=== PATIENT | male | born 1975 | race Caucasian/White ===

== ENCOUNTER 2023-10-29 15:49 | Outpatient (REF) | payer MEDICAID, OTHER, SELFPAY ==
[2023-10-29 17:38] LABS: Basophils Percent Auto 0.5 % (0-2); Eosinophils Absolute Auto 0.1 X10*3/uL (0.0-0.4); Eosinophils Percent Auto 1.5 % (0-4); Hematocrit 40.7 % (42.0-52.0); Imm Gran Abs Auto 0.02 X10*3/uL (0.00-0.03); Imm Gran Pct Auto 0.3 % (0.0-0.4); Lymphocytes Absolute Auto 2.7 X10*3/uL (1.2-4.9); Lymphocytes Percent Auto 34.8 % (20-40); MANUAL DIFF FLAG NO; Mean Corpuscular HGB Conc 34.4 g/dl (31.0-36.0); Mean Corpuscular Hemoglobin 31.5 pg (27.0-33.0); Mean Corpuscular Volume 91.7 fL (80.0-98.0); Mean Platelet Volume 9.2 fL (9.4-12.4); Monocytes Absolute Auto 0.7 X10*3/uL (0.1-1.2); Monocytes Percent Auto 8.6 % (2-11); Neutrophils Absolute Auto 4.2 x10*3/uL (2.0-8.3); Neutrophils Percent Auto 54.3 % (45-73); Platelet Count 211 X10*3/uL (160-400); Red Blood Count 4.44 X10*6/uL (4.60-5.80); Red Cell Distribution Width 11.3 % (11.0-16.0); White Blood Count 7.8 X10*3/uL (4.8-10.8)
[2023-10-30 14:43] LABS: RPR Rapid Plasma Reagin NON-REACTIVE (NON-REACTIVE)
== END 2023-10-29 15:50 | disposition home or self-care (01) ==
LOC: HO.CHCLDS 15:49
PROVIDERS: Visit Provider Internal Medicine
DX: L42 Pityriasis rosea (principal)
CPT/HCPCS: 36415; 85025; 86592

== ENCOUNTER 2024-11-11 14:00 | Outpatient (REF) | payer MEDICAID, OTHER, SELFPAY ==
[2024-11-11 17:35] LABS: MANUAL DIFF FLAG NO
[2024-11-11 18:01] LABS: Alanine Aminotransferase 27 U/L (0-40); Albumin Level 4.7 g/dL (3.5-5.0); Alkaline Phosphatase 65 U/L (39-117); Anion Gap 12 (12-20); Aspartate Amino Transferase 30 U/L (5-37); Bilirubin Total 0.7 mg/dL (0.0-1.0); Blood Urea Nitrogen 11 mg/dL (9-16); Calcium 9.1 mg/dL (8.4-10.2); Carbon Dioxide 26 mmol/L (22-29); Chloride 104 mmol/L (96-108); Cholesterol 194 mg/dL (<200); Estimated Glomerular Filt Rate > 60; Glucose Random 98 mg/dL (60-115); HDL Cholesterol 57 mg/dL (>40); LDL Cholesterol Calculated 98 mg/dL (<100); Potassium 3.6 mmol/L (3.3-5.1); Sodium 138 mmol/L (135-145); Total Protein 7.5 g/dL (6.5-8.0); Triglycerides 197 mg/dL (<150)
[2024-11-11 18:05] LABS: Basophils Percent Auto 0.4 % (0-2); Eosinophils Absolute Auto 0.1 X10*3/uL (0.0-0.4); Eosinophils Percent Auto 0.6 % (0-4); Hematocrit 41.7 % (42.0-52.0); Hemoglobin 14.7 g/dl (14.0-18.0); Imm Gran Abs Auto 0.03 X10*3/uL (0.00-0.03); Imm Gran Pct Auto 0.3 % (0.0-0.4); Lymphocytes Absolute Auto 2.6 X10*3/uL (1.2-4.9); Lymphocytes Percent Auto 27.3 % (20-40); Mean Corpuscular HGB Conc 35.3 g/dl (31.0-36.0); Mean Corpuscular Volume 93.5 fL (80.0-98.0); Mean Platelet Volume 9.3 fL (9.4-12.4); Monocytes Absolute Auto 0.7 X10*3/uL (0.1-1.2); Monocytes Percent Auto 7.3 % (2-11); Neutrophils Absolute Auto 6.1 x10*3/uL (2.0-8.3); Neutrophils Percent Auto 64.1 % (45-73); Platelet Count 221 X10*3/uL (160-400); Red Blood Count 4.46 X10*6/uL (4.60-5.80); Red Cell Distribution Width 11.9 % (11.0-16.0); White Blood Count 9.6 X10*3/uL (4.8-10.8)
[2024-11-11 18:18] LABS: TSH reflex Free T4 0.69 uIU/mL (0.32-4.0); Vitamin D 25-OH Total 43.1 ng/mL (>30)
[2024-11-15 16:23] LABS: Testosterone, Total 552 ng/dL (250-1100)
== END 2024-11-11 14:01 | disposition home or self-care (01) ==
LOC: HO.CHCLDS 14:00
PROVIDERS: Visit Provider Internal Medicine
DX: Z00.00 Encounter for general adult medical examination without abnormal findings (principal); R53.83 Other fatigue; L40.0 Psoriasis vulgaris; N52.8 Other male erectile dysfunction
CPT/HCPCS: 36415; 80053; 80061; 82306; 84403; 84443; 85025

== ENCOUNTER → 2025-03-10 19:30 | Outpatient (REF) | payer MEDICAID, OTHER, SELFPAY ==
--- OUTSIDE RECORDS SUMMARY | 2025-03-10 20:48 | XMS_ITS | Clinical Summary ---
Author Organization [employer] Address [address] [place] [address] [address] [place] [address] Care Team Providers Care Wine Steward Name Role Phone Danilo Arguelles MD Primary Care Provider [phone] Allergies Active Allergy Reactions Criticality Noted Date Comments Aspirin 08/03/2012 Ibuprofen 02/13/2024 Medications fexofenadine (Maria Luisa) 180 MG tabletIndication s:Pityriasis rosea Take 1 tablet (180 mg) by mouth in the morning. 2 tabs at bedtime 30 tablet 3 Active diphenhydrAMINE (BENADryl) 25 MG tabletIndication s:Pityriasis rosea 2 tabs at bedtime 30 tablet 3 Active Additional Information Patient not taking.Reported on 01/22/2024 triamcinolone (Kenalog) 0.1 % creamIndications :Psoriasis vulgaris Apply topically if needed in the morning and at bedtime (pain and swelling). 80 g 11 4 Active calcipotriene (Dovonex) 0.005 % ointmentIndicati ons:Psoriasis vulgaris Apply topically 2 times daily. 60 g 4 Active betamethasone, augmented, (Diprolene) 0.05 % ointmentIndicati ons:Psoriasis vulgaris Apply topically 2 times daily. 15 g 4 Active Additional Information Patient not taking.Reported on 04/15/2024 chlorhexidine (Peridex) 0.12 % solution Please 15 ml solution to swish your teeth for 60 seconds. Spit. Do not rinse with water. 473 mL 1 4 Active sildenafil (Viagra) 50 MG tabletIndication s:Other male erectile dysfunction Take 1 tablet 30 minutes before sexual activity 10 tablet 3 4 Active varenicline (Chantix) 1 MG tabletIndication s:Smoking Take 1 tablet (1 mg) by mouth 2 times daily. Take with full glass of water. 60 tablet 2 5 Active varenicline (Chantix) 0.5 MG tabletIndication s:Smoking TAKE ONE TABLET DAILY FOR THREE DAYS THEN ONE TABLET TWICE DAILY DAYS FOUR TO SEVEN. take with WATER 11 tablet 1 5 Active nystatin (Mycostatin) 514980 UNIT/GM powderIndication s:Toe web intertrigo APPLY TO THE AFFECTED AREA(S) TWICE DAILY 30 g 1 Active acetaminophen (Tylenol) 500 MG tablet Take 1 tablet (500 mg) by mouth every 6 (six) hours if needed for mild pain for up to 20 doses. 20 tablet 5 Active Active Problems Problem Noted Date Diagnosed Date Annual physical exam 11/11/2024 Smoking 11/11/2024 Open fracture of tooth 04/06/2024 Periodontal disease 03/12/2024 Dental calculus 03/12/2024 Dental abscess 03/12/2024 Dental caries 03/12/2024 Encounters Date Type Department Care Team Description 02/22/2025 3:00 PM EDT Office Visit [facility] [address] [place] [address] Faisal Arguelles Dental calculus (Primary Dx) 02/16/2025 3:30 PM EDT Office Visit [facility] [address] [place] [address] Danilo Arguelles MD Snoring (Primary Dx); Blurry vision, bilateral 02/16/2025 Travel 02/15/2025 Telephone [facility] [address] [place] [address] Danilo Arguelles MD Chart Prep 02/09/[address] [facility] [address] [place] [address] [phone] Danilo Arguelles MD Pre-visit Planning (SDOH screening negative and Tobacco screening negative) 02/02/2025 2:00 PM EDT Office Visit [facility] [address] [place] [address] Brandi Munoz, DMD 01/31/2025 3:30 PM EDT Office Visit [facility] [address] [place] [address] Brandi Munoz, DMD 01/31/2025 Telephone [facility] [address] [place] [address] Danilo Arguelles MD Nurse Triage 01/26/2025 1:00 PM EDT Office Visit [facility] [address] [place] [address] Brandi Munoz, DMD 01/20/2025 Refill [facility] [address] [place] [address] Danilo Arguelles MD Toe web intertrigo 01/12/2025 Refill [facility] [address] [place] [address] Danilo Arguelles MD Smoking 01/11/2025 2:00 PM EST Office Visit [facility] [address] [place] [address] Jos Funk from Last 3 Months Immunizations Name Administration Dates Next Due Influenza injectable quadriv alent IIV4 with preservative 08/30/2019 Influenza injectable quadrivalent preservative f ree 10/22/2018,09/01/2017 Influenza, IIV3, injectable 07/31/2010 Influenza, Split (incl. purified surface antigen ) 08/03/2012 Influenza, seasonal, injectable, preservative fr ee 11/11/2024 Tdap 09/01/2017 Social History Tobacco Use Types Packs/Day Years Used Date Smoking Tobacco: Every Day Cigarettes Smokeless Tobacco: Never Tobacco Cessation:Ready to Q uit: Not Asked; Counseling Given: Not Answered Alcohol Use Standard Drinks/Week Comments Not Currently 0 (1 standard drink = 0.6 oz pur e alcohol) Depression Answer Date Recorded Patient Health Questionnaire-9 Score 6 11/11/2024 Patient Health Questionnaire-9 Score 6 11/11/2024 Last PHQ-9: Questionnaire Data Not on file 0 11/11/2024 Housing Stability Answer Date Recorded What is your housing situation today? I have richard lopez 11/02/[address] you li ve. Do you have problems with any of the following? None of the above 11/02/2024 Food Insecurity Answer Date Recorded Within the past 12 months, y ou worried that your food would run out before you got money to buy more: Never True 11/02/2024 Within the past 12 months,th e food you bought just didn't last and you didn't have enough money to get more: Never True Transportation Answer Date Recorded In the past 12 months, has l ack of transportation kept you from medical appts, meetings, work or from getting things needed for daily living? No 11/02/2024 Utilities Answer Date Recorded In the past 12 months, has t he electric, gas, oil or water company threatened to shut off services in your home? No 11/02/2024 Depression Answer Date Recorded Patient Health Questionnaire-2 Score 0 11/11/2024 Internet Access Answer Date Recorded Internet Access Q1 Yes 11/02/2024 Internet Access Q2 Not on file 11/02/2024 Sex and Gender Information Value Date Recorded Sex Assigned at Male 09/09/2022 10:19 AM EDT Legal Sex Male 10:19 AM EDT Gender Identity Male 09/09/2022 10:19 AM EDT Sexual Orientation Don't know 09/09/2022 10 :19 AM EDT Last Filed Vital Signs Vital Sign Reading Time Taken Comments Blood Pressure 118/64 02/22/2025 2:49 PM EDT Pulse 65 02/22/2025 2:49 PM EDT Temperature 36.7 ??C (98 ??F) 02/16/2025 3:23 PM EDT Respiratory Rate 20 02/16/2025 3:23 PM EDT Oxygen Saturation 98% 02/16/2025 3:23 PM EDT Inhaled Oxygen Concentration - - Weight 94.8 kg (209 lb) 02/16/2025 3:23 PM EDT Height 182 cm (5' 11.65 ) 02/16/2025 3:23 PM EDT Body Mass Index 28.62 02/16/2025 3:23 PM EDT Plan of Treatment Upcoming Encounters Date Type Department Care Team (Late st Contact Info) Description 03/15/2025 3:00 PM EDT Office Visit [facility] [address] [place] [address] Jos Funk [address] [place] [address] Health Maintenance Due Date Last Done Comments CT Colonography 1975 Colonoscopy 1975 FIT 1975 FOBT 1975 HIV Screening 1975 Sigmoidoscopy 1975 Alcohol/Substance Use Screening 1987 Family Planning (PISQ) 1990 Hepatitis C Screening 1993 Hepatitis B Vaccines (1 of 3 - 19+ 3-dose series) 1994 Pneumococcal Vaccine: Pediatrics (0 to 5 Years) and At-Risk Patients (6 to 49) Years) (1 of 2 - PCV) 1994 COVID-19 Vaccine ( - 2023- season) 2024 12/22/2021, 03/30/2021, 03/09/2021 Dental Oral Exam 08/15/2024 02/13/2024, , 10/26/2015, Additional history exists Dental Prophylaxis 04/30/2025 10/29/2024, 0 03/12/2024, 08/14/2010, Additional history exists Dental X-Ray: Bitewings 10/07/2025 10/06/20 24, 02/13/2024, 08/07/2017, Additional history exists Depression Screening 11/11/2025 11/11/2024, 11/11/19 Zoster Vaccines (1 of 2) 2025 SDOH Screening 02/09/2026 02/09/2025 Tobacco Screening 02/22/2026 02/22/2025 Dental X-Ray: Full Mouth 02/13/2027 024, 02/13/2024, 07/09/2013 DTaP/Tdap/Td Vaccines (2 - Td or Tdap) 09/01/2027 09/01/2017 Colorectal Cancer Screening 12/15/2027 FIT DNA/Cologuard 12/15/2027 12/15/2024 Lipid Panel 11/11/2029 11/11/2024, 06/14/2022 RSV Patients and Patients Aged 60 years or older (1 - 1-dose 75+ series) 2050 Influenza Vaccine Completed 11/11/2024, , 10/22/2018, Additional history exists HIB Vaccines Aged Out No longer eligi ble based on patient's age to complete this topic HPV Vaccines Aged Out No longer eligi ble based on patient's age to complete this topic Hepatitis A Vaccines Aged Out No long er eligible based on patient's age to complete this topic IPV Vaccines Aged Out No longer eligi ble based on patient's age to complete this topic Meningococcal Vaccine Aged Out No johnny kayden eligible based on patient's age to complete this topic RSV under 20 months Aged Out No longe r eligible based on patient's age to complete this topic Rotavirus Vaccines Aged Out No longer eligible based on patient's age to complete this topic Procedures Procedure Name Priority Date/Time Associated Diagnosis Comments CASE PRESENTATION, DETAILED AND EXTENSIVE TREATMENT PLANNING Routine 02/22/2025 3:00 PM EDT ORAL HYGIENE INSTRUCTIONS Routine 02/22/2025 3:00 PM EDT LR PERIODONTAL SCALING AND ROOT PLANING - 4 OR MORE TEETH PER QUADRANT Routine 02/22/2025 3:00 PM EDT UR PERIODONTAL SCALING AND ROOT PLANING - 1 TO 3 TEETH PER QUADRANT Routine 02/22/2025 3:00 PM EDT CASE PRESENTATION, DETAILED AND EXTENSIVE TREATMENT PLANNING Routine 02/02/2025 2:00 PM EDT 15 ADD TOOTH TO EXISTING PARTIAL DENTURE Routine 02/02/2025 2:00 PM EDT 10 ADD TOOTH TO EXISTING PARTIAL DENTURE Routine 02/02/2025 2:00 PM EDT 8 ADD TOOTH TO EXISTING PARTIAL DENTURE Routine 02/02/2025 2:00 PM EDT 3 ADD TOOTH TO EXISTING PARTIAL DENTURE Routine 02/02/2025 2:00 PM EDT CASE PRESENTATION, DETAILED AND EXTENSIVE TREATMENT PLANNING Routine 01/31/2025 3:30 PM EDT LIMITED ORAL EVALUATION - PROBLEM FOCUSED Routine 01/31/2025 3:30 PM EDT CASE PRESENTATION, DETAILED AND EXTENSIVE TREATMENT PLANNING Routine 01/26/2025 1:00 PM EDT 15 EXTRACTION, ERUPTED TOOTH OR EXPOSED ROOT (ELEVATION/FORCEPS REMOVAL) Routine 01/26/2025 1:00 PM EDT 10 EXTRACTION, ERUPTED TOOTH OR EXPOSED ROOT (ELEVATION/FORCEPS REMOVAL) Routine 01/26/2025 1:00 PM EDT 8 EXTRACTION, ERUPTED TOOTH OR EXPOSED ROOT (ELEVATION/FORCEPS REMOVAL) Routine 01/26/2025 1:00 PM EDT 3 EXTRACTION, ERUPTED TOOTH OR EXPOSED ROOT (ELEVATION/FORCEPS REMOVAL) Routine 01/26/2025 1:00 PM EDT LL PERIODONTAL SCALING AND ROOT PLANING - 4 OR MORE TEETH PER QUADRANT Routine 01/11/2025 2:00 PM EST UL PERIODONTAL SCALING AND ROOT PLANING - 4 OR MORE TEETH PER QUADRANT Routine 01/11/2025 2:00 PM EST LAB COLOGUARD?? COLON CANCER SCREEN Routine 12/15/2024 9:50 PM EST Screening for colon cancer LIPID PANEL, STANDARD Routine 11/11/2024 2:01 PM EST Annual physical exam Other fatigue Psoriasis vulgaris Other male erectile dysfunction PROPHYLAXIS - ADULT Routine 10/29/2024 2 :00 PM EST BITEWING - SINGLE RADIOGRAPHIC IMAGE Routine 10/06/2024 3:00 PM EST PANORAMIC RADIOGRAPHIC IMAGE Routine 02/13/2024 3:00 PM EDT PERIODIC ORAL EVALUATION - ESTABLISHED PATIENT Routine 02/13/2024 3:00 PM EDT from Last 3 Months or Most Recently Relevant to Health Maintenance Results * Cologuard?? colon cancer screening (12/15/2024 9:50 PM EST) Cologuard Result Negative Negative 12/25/19 4:06 AM EST [facility] (CLIA #:[id number]) Comment: NEGATIVE TEST RESULT. A negative Cologuard result indicates a low likelihood that a colorectal cancer (CRC) or advanced adenoma (adenomatous polyps with more advanced pre-malignant features) ??is present. The chance that a person with a negative Cologuard test has a colorectal cancer is less than 1 in 1500 (negative predictive value >99.9%) or has an ??advanced adenoma is less than ??5.3% (negative predictive value 94.7%). These data are based on a prospective cross-sectional study of 10,000 individuals at average risk for colorectal cancer who were screened with both Cologuard and colonoscopy. (Elton Shepherd al, N Engl J Med 2014;370(14):1286- 1297) The normal value (reference range) for this assay is negative. COLOGUARD RE-SCREENING RECOMMENDATION: Periodic colorectal cancer screening is an important part of preventive healthcare for asymptomatic individuals at average risk for colorectal cancer. ??Following a negative Cologuard result, the [place] [employer] and U.S. Multi-Society Task Force screening guidelines recommend a Cologuard re-screening interval of 3 years. References: [place] [employer] Guideline for Colorectal Cancer Screening: https://www.cancer.org/cancer/lpmfw-zvnvxv-hfodtb/gowsiszoe-zezbhlfvi-vxviwxq/ac s-rec ommendations.html.; John DK, Christi CR, Donnie PruittK, Colorectal Cancer Screening: Recommendations for Physicians and Patients from the U.S. Multi-Society Task Force on Colorectal Cancer Screening , Am J Gastroenterology 2017; 112:1256-6927. TEST DESCRIPTION: Composite algorithmic analysis of stool DNA-biomarkers with hemoglobin immunoassay. ?? Quantitative values of individual biomarkers are not reportable and are not associated with individual biomarker result reference ranges. Cologuard is intended for colorectal cancer screening of adults of either sex, 45 years or older, who are at average-risk for colorectal cancer (CRC). Cologuard has been approved for use by the U.S. FDA. The performance of Cologuard was established in a cross sectional study of average-risk adults aged 50-84. Cologuard performance in patients ages 45 to 49 years was estimated by sub-group analysis of near-age groups. Colonoscopies performed for a positive result may find as the most clinically significant lesion: colorectal cancer [4.0%], advanced adenoma (including sessile serrated polyps greater than or equal to 1cm diameter) [20%] or non- advanced adenoma [31%]; or no colorectal neoplasia [45%]. These estimates are derived from a prospective cross-sectional screening study of 10,000 individuals at average risk for colorectal cancer who were screened with both Cologuard and colonoscopy. (Elton Shepherd al, N Engl J Med 2014;370(14):7406-4645.) Cologuard may produce a false negative or false positive result (no colorectal cancer or precancerous polyp present at colonoscopy follow up). A negative Cologuard test result does not guarantee the absence of CRC or advanced adenoma (pre-cancer). The current Cologuard screening interval is every 3 years. ([place] [employer] and U.S. Multi-Society Task Force). Cologuard performance data in a 10,000 patient pivotal study using colonoscopy as the reference method can be accessed at the following location: www.[employer]/results. Additional description of the Cologuard test process, warnings and precautions can be found at www.[employer].com. Stool specimen (specimen) 12/15/2024 9:50 PM EST 12/17/2024 1:18 PM EST us Danilo Arguelles MD LAB MOLECULAR DIAGNOSTICS O RDERABLES Final Result [facility] (CLIA #:[id number]) [address] [place] [address], * (ABNORMAL) Lipid Panel, Standard (11/11/2024 2:01 PM EST) Triglycerides 197(H) <150 mg/dL [facility] Comment:Desirable Triglyceri de: less than 150 mg/dLBorderline High Triglyceride 150-199 mg/dLHigh Triglyceride: 200-499 mg/dLVery High Triglyceride: greater than or equal to 5OO mg/dL Cholesterol 194 <200 mg/dL [facility] Comment:Desirable Cholestero l: less than 200 mg/dLBorderline High Cholesterol: 200-239 mg/dLHigh Cholesterol: greater than 239 mg/dL LDL Cholesterol Calculated 98 <100 mg/dL [facility] Comment:Desirable LDL: less than 100 mg/dLNear Optimal/Above Optimal LDL: 110- 129 mg/dLBorderline High LDL: 130-159 mg/dLHigh LDL: 160-189 mg/dLVery High LDL: greater than or equal to 190 mg/dL HDL Cholesterol 57 >40 mg/dL [facility] Comment:Desirable HDL: great er than 40 mg/dL Note: This HDL assay may give artificially low results in patients with liver disease. Blood Venous blood specimen / Unknown 11/11/2024 2:01 PM EST 11/11/2024 5:32 PM EST us Danilo Arguelles MD LAB BLOOD ORDERABLES Final Result [facility] [address] [place] [address] [phone] from Last 3 Months or Most Recently Relevant to Health Maintenance Insurance [employer] HSN FULL DENTAL - HSN FULL [place]MEDICAID[place] ADULT Care Teams Wine Steward Relationship Specialty Start Date End Date Danilo Arguelles MD [address] [place] [address] PCP - General Internal Medicine 12/10/13
== END ==
LOC: HO.SL 19:30
PROVIDERS: PCP Internal Medicine; Visit Provider Internal Medicine
DX: Z13.89 Encounter for screening for other disorder (principal)